=== PATIENT | male | born 1960 | race Two or more races ===

== ENCOUNTER 2018-09-28 11:45 | Emergency (ER) | payer OTHER ==
[~2018-09-28] VITALS: Ht 172.7 cm; Wt 90.7 kg
[2018-09-28] MEDS ORDERED: UROXATRAL10 MG PO (12:37)
[2018-09-28] MEDS ORDERED: AMLODIPINE-OLM1 EAC1 PO (12:37)
[2018-09-28] MEDS ORDERED: BUPROPION XL300 MG PO (12:38)
[2018-09-28] MEDS ORDERED: BUSPIRONE HCL10 MG PO (12:38)
[2018-09-28] MEDS ORDERED: CRESTOR5 MG PO (12:38)
[2018-09-28] MEDS ORDERED: FORTAMET1000 MG PO (12:39)
[2018-09-28] MEDS ORDERED: DOXEPIN HCL10 MG PO (12:39)
[2018-09-28] MEDS ORDERED: SOLIQUA 100 UNIT3 ML SQ (12:39)
[2018-09-28] MEDS ORDERED: JARDIANCE10 MG PO (12:39)
[2018-09-28] MEDS ORDERED: RESTORIL30 M1 PO (12:40)
== END 2018-09-28 14:27 | disposition home or self-care (01) ==
LOC: ER 11:45
DX: J06.9 Acute upper respiratory infection, unspecified (principal); J11.1 Influenza due to unidentified influenza virus with other respiratory manifestations

== ENCOUNTER → 2023-06-02 | Emergency (ER) | payer OTHER ==
[~2023-06-02] VITALS: Ht 172.7 cm; Wt 77.1 kg
[~2023-06-02] MED LIST: AMLODIPINE-OLM1 EAC1 PO; BUPROPION XL300 MG PO; BUSPIRONE HCL10 MG PO; CRESTOR5 MG PO; DOXEPIN HCL10 MG PO; FORTAMET1000 MG PO; JARDIANCE10 MG PO; RESTORIL30 M1 PO; SOLIQUA 100 UNIT3 ML SQ; UROXATRAL10 MG PO
== END | disposition home or self-care (01) ==
LOC: ER 09:45
DX: H00.014 Hordeolum externum left upper eyelid (principal)

== ENCOUNTER 2023-06-07 14:42 | Emergency (ER) | payer OTHER ==
[~2023-06-07] VITALS: Ht 172.7 cm; Wt 77.1 kg
[2023-06-07] MEDS ORDERED: OZEMPIC1 MG/0.71 SQ (15:50)
[2023-06-07] MEDS ORDERED: LANTUS SOL100 UNIT/1 SQ (15:51)
[2023-06-07] MEDS ORDERED: SYNJARDY 12.5-1 EACH PO (15:51)
== END 2023-06-07 16:50 | disposition home or self-care (01) ==
LOC: ER 14:42
DX: L04.9 Acute lymphadenitis, unspecified (principal)